=== PATIENT | female | born 1970 | race African-American/Black ===

== ENCOUNTER 2016-08-11 07:28 | Emergency (ER) | payer OTHER ==
[2016-08-11 07:39] VITALS: BP 152/90
--- NOTE | 2016-08-11 08:13 | PROVIDER DOCUMENTATION ---
HPI-Respiratory General - General Chief Complaint: Sore Throat Stated Complaint: FLU LIKE SX Time Seen by Provider: 08/11/16 07:42 Allergies/Adverse Reactions: Patient Allergies Allergy/AdvReac Type Severity Reaction Status Date / Time acyclovir Allergy Unknown NAUSEA; Verified 03/06/16 09:07 LEGS NUMB prednisone Allergy Unknown VOMITING Verified 03/06/16 09:07 ketorolac tromethamine * AdvReac Severe Unknown Verified 03/06/16 09:07 [From Toradol] Home Medications: Simvastatin [Zocor] 40 mg PO QHS 03/30/12 Polyethylene Glycol 3350 [Miralax] 1 dose PO DAILY 12/13/15 - History of Present Illness-Resp Nature of Presenting Problem: URI symptoms X 1 week. Sore throat, sinus congestion, cough. No F/C/SOB/[place]. Quality of Pain: reports: aching Severity in ED: reports: moderate Onset/Duration: reports: 1 week ago Timing: reports: still present Context: denies: recent foreign travel, insect bite (possible tick) Exposure: reports: unknown cause Cough Quality/Degree: reports: dry cough Episode Frequency: no prior episodes Current Respiratory Medication Therapy: Initiated none Modifying Factors: improves with: nothing Associated Symptoms: reports: cough, facial pain, flu-like symptoms, sore throat . denies: fever/chills, headache, nasal drainage, shortness of breath, short of breath Similar Symptoms Previously?: No Recently seen or treated by another doctor?: No Review of Systems - Adult - REVIEW OF SYSTEMS - ADULT Constitutional: reports: see HPI, fatique. denies: fever, weight gain Eyes: reports: no symptoms reported Ears, Nose, Mouth & Throat: reports: see HPI, sinus problem, throat pain Cardiovascular: reports: no symptoms reported Respiratory: reports: see HPI, cough. denies: shortness of breath Gastrointestinal: reports: no symptoms reported Genitourinary: reports: no symptoms reported Musculoskeletal: reports: no symptoms reported Integumentary: reports: no symptoms reported Neurological: reports: no symptoms reported Psychiatric: reports: no symptoms reported All Other Systems: Reviewed and Negative Past History - Adult - PAST MEDICAL HISTORY-ADULT Major Childhood Illnesses: reports: denies history Cardiovascular: reports: HTN, hyperlipidemia Gastrointestinal: reports: IBS Musculoskeletal: reports: other (avascular necrosis) Endocrine/Immune: reports: other (shingles) - PRIOR SURGERIES/PROCEDURES Surgical/Procedure History: reports: hysterectomy, orthopedic (extremity) - PRIOR HOSPITALIZATIONS Prior Hospitalizations: reports: none - IMMUNIZATION STATUS Childhood Immunizations: See Nurse Assessment Flu Vaccine: See Nurse Assessment - FAMILY HISTORY Family History: reviewed, not pertinent Physical Exam-General - PHYSICAL EXAM-ADULT Initial Vital Signs Reviewed: Yes - CONSTITUTIONAL General Appearance: appears well, alert, no apparent distress - EYES Eyes: PERRL/EOMI, pink conjunctivae - HEAD, EARS, NOSE, MOUTH & THROAT HENMT: normocephalic/atraumatic, moist mucous membranes, normal ENT inspection - NECK Neck: non-tender, full range of motion, normal inspection - RESPIRATORY Respiratory: chest non-tender, lungs clear, normal breath sounds - CARDIOVASCULAR Cardiovascular: normal peripheral pulses, regular rate, rhythm, no edema - GASTROINTESTINAL (ABDOMEN) Abdominal Exam: normal bowel sounds, non tender, soft - LYMPHATIC Lymphatic: no adenopathy - MUSCULOSKELETAL Back Exam: normal inspection, no CVA tenderness, no vertebral tenderness Extremity: normal range of motion, non-tender, normal gait - SKIN Integumentary: normal color, normal turgor, warm/dry - NEUROLOGIC Neurologic: grossly normal, no motor/sensory deficits - PSYCHIATRIC Psych/Mental Status: normal mood/affect, normal thought content, normal thought process, oriented x 3 Progress - PLAN OF CARE/RESULTS Progress/Plan/Lab Results: Laboratory Results - last 24 hr 08/11/16 08/11/16 07:33 07:33 Influenza A (Rapid) NEGATIVE Influenza B (Rapid) NEGATIVE Group A Strep Rapid NEGATIVE Vital Signs Temp Pulse Resp BP Pulse Ox 08/11/16 07:36 97.2 F L 84 18 152/90 99 acyclovir Allergy (Unknown, Verified 03/06/16 09:07) NAUSEA; LEGS NUMB prednisone Allergy (Unknown, Verified 03/06/16 09:07) VOMITING ketorolac tromethamine * [From Toradol] Adverse Reaction (Severe, Verified 03/06 09:07) Unknown "makes head pound" Simvastatin [Zocor] 40 mg PO QHS 03/30/12 Acetaminophen [Tylenol] 650 mg PO Q4H PRN PRN #0 tablet 04/04/15 Dicyclomine [Bentyl] 20 mg PO PRN PRN #0 capsule 04/04/15 Ondansetron Odt [Zofran 4 mg Odt] 4 mg PO Q6H PRN PRN #12 tablet 12/13/15 Polyethylene Glycol 3350 [Miralax] 1 dose PO DAILY 12/13/15 Butalbital/APAP/Caffeine [Fioricet] 1 each PO Q4H PRN PRN #20 tablet 03/06/16 Bisacodyl [Dulcolax] 10 mg CA QHS #20 supp 04/03/16 Magnesium Citrate [Citrate of Magnesia] 300 ml PO ONCE #1 bottle 04/03/16 Polyethylene Glycol 3350 [Miralax] 17 gm PO DAILY #20 powd.pack 04/03/16 Tramadol [Ultram] 50 mg PO Q8HR #14 tablet 04/03/16 Penciclovir Cream [Denavir Cream] 1 applicatn TOP Q2H PRN PRN #1 tube 06/04/16 Laboratory 08/11/16 08/11/16 07:33 07:33 Influenza A (Rapid) NEGATIVE Influenza B (Rapid) NEGATIVE Group A Strep Rapid NEGATIVE Orders Category Date Time Status DIRECT STREP PL Stat Lab 08/11/16 07:33 Completed Flu [INFLUENZA SCREEN PL] Stat Lab 08/11/16 07:33 Completed Departure - Departure Time of Disposition Order: 08:16 DIAGNOSIS: Bronchitis Sinusitis Qualifiers: Sinusitis location: unspecified location Chronicity: acute Recurrence: not specified as recurrent Qualified Code(s): J01.90 - Acute sinusitis, unspecified Disposition: HOME 01 Certified Medical Emergency: Emergent Condition: Stable Prescriptions: Methylprednisolone [Medrol Dosepak] 4 mg PO DIRECTED #1 package Benzonatate [Tessalon Perle] 200 mg PO TID #30 capsule Azithromycin [Zithromax Z-Michael] 250 mg PO DIRECTED #1 pkg Referrals: Benito Meadows MD [Primary Care Provider] -
== END 2016-08-11 08:29 | disposition home or self-care (01) ==
LOC: P.ED 07:28
DX: J40 Bronchitis, not specified as acute or chronic (principal); J01.90 Acute sinusitis, unspecified; J02.9 Acute pharyngitis, unspecified; R09.81 Nasal congestion; R05 Cough; R51 Headache; R53.83 Other fatigue; I10 Essential (primary) hypertension; E78.5 Hyperlipidemia, unspecified; Z79.899 Other long term (current) drug therapy
CPT/HCPCS: 87081; 87430; 87804; 99283

== ENCOUNTER 2016-10-03 09:39 | Emergency (ER) | payer OTHER ==
--- NOTE | 2016-10-03 12:33 | PROVIDER DOCUMENTATION ---
HPI-EENT General - General Source: patient - History of Present Illness-EENT General EENT Location: reports: throat Quality of Pain: reports: aching Severity: reports: mild Onset/Duration: reports: 4 days ago Timing: reports: still present, intermittent Prearrival Treatment: Initiated no prearrival treatment Associated Symptoms: reports: fever, sore throat Locality of [place]: Home Similar Symptoms Previously?: Yes Recently seen or treated by another doctor?: No - Eyes Eye Problem Symptoms: denies: eye pain - Ears Ear Problem Symptoms: reports: none - Throat/Dental Throat/Dental Problem Symptoms: reports: sore throat Recently seen a dentist or have an appointment?: No <Lola Izaguirre - Last Filed: 10/03/16 12:31> <Genaro Anaya - Last Filed: 10/03/16 12:41> - General Chief Complaint: Cold Symptoms Stated Complaint: COLD SX Time Seen by Provider: 10/03/16 10:40 Allergies/Adverse Reactions: Patient Allergies Allergy/AdvReac Type Severity Reaction Status Date / Time acyclovir Allergy Unknown NAUSEA; Verified 03/06/16 09:07 LEGS NUMB prednisone Allergy Unknown VOMITING Verified 03/06/16 09:07 ketorolac tromethamine * AdvReac Severe Unknown Verified 03/06/16 09:07 [From Toradol] Home Medications: Home Medication List Medication Instructions Recorded Confirmed Last Taken Type Simvastatin [Zocor] 40 mg PO QHS 03/30/12 12/13/15 12/13/15 History Amoxicillin [Amoxil] 500 mg PO BID #14 capsule 10/03/16 Unknown Rx Diphenhyramine/Al&mg Oh/Lido [Mbx 15 ml MT Q4-6H PRN PRN #1 bottle 10/03/16 Unknown Rx Solution] Guaifenesin/D-Methorphan Hb/PE 1 each PO Q6-8H PRN PRN #14 tablet 10/03/16 Unknown Rx [Deconex Dmx Tablet] Polyethylene Glycol 3350 [Miralax] 10/03/16 Unknown History - History of Present Illness-EENT General Nature of Presenting Problem: Pt is 46 y/o F presents to the ED with sore throat. Pt states F and chills. Pt denies N/V/D. (Lola Izaguirre) Review of Systems - Adult - REVIEW OF SYSTEMS - ADULT Constitutional: reports: chills, fever Eyes: reports: no symptoms reported Ears, Nose, Mouth & Throat: reports: throat pain. denies: ear pain, nose pain Cardiovascular: reports: no symptoms reported Respiratory: reports: no symptoms reported Gastrointestinal: reports: no symptoms reported Genitourinary: reports: no symptoms reported Musculoskeletal: reports: no symptoms reported Integumentary: reports: no symptoms reported Neurological: reports: no symptoms reported Psychiatric: reports: no symptoms reported Endocrine: reports: no symptoms reported Hematologic/Lymphatic: reports: no symptoms reported Allergic/Immunologic: reports: no symptoms reported All Other Systems: Reviewed and Negative <Lola Izaguirre - Last Filed: 10/03/16 12:31> Past History - Adult - PAST MEDICAL HISTORY-ADULT Review of Records: reports: Nursing Assessment Review, Medications Reviewed, Social history reviewed & non-contributory. Major Childhood Illnesses: reports: denies history Cardiovascular: reports: HTN, hyperlipidemia Respiratory: reports: denies history Gastrointestinal: reports: IBS Obstetrical/Gynecological: reports: denies history Genitourinary: reports: denies history Musculoskeletal: reports: other (avascular necrosis) Neurological: reports: denies history Endocrine/Immune: reports: other (shingles) Other Conditions: reports: denies history - PRIOR SURGERIES/PROCEDURES Surgical/Procedure History: reports: hysterectomy, orthopedic (extremity) - PRIOR HOSPITALIZATIONS Prior Hospitalizations: reports: none - IMMUNIZATION STATUS Childhood Immunizations: See Nurse Assessment Flu Vaccine: See Nurse Assessment - FAMILY HISTORY Family History: reviewed, not pertinent - SOCIAL HISTORY Smoking: denies Substance Use: denies Living Situation: family <Lola Izaguirre - Last Filed: 10/03/16 12:31> Physical Exam- EENT - Physical Exam EENT Initial Vital Signs Reviewed: Yes General Appearance: appears well, alert, no apparent distress Eye Exam: bilateral eye: normal inspection, PERRL, EOMI Ear Exam: bilateral ear: auricle normal, canal normal, TM normal Nasal Exam: normal inspection Throat Exam: tonsillar swelling, other (redness to tonsils) Neck: non-tender, full range of motion, supple, normal inspection Respiratory: chest non-tender, lungs clear, normal breath sounds, no pleuratic chest pain, no respiratory distress, no accessory muscle use Cardiovascular: normal peripheral pulses, regular rate, rhythm, no edema, no gallop, no JVD, no murmur Abdominal Exam: normal bowel sounds, non tender, soft, no organomegaly, no pulsatile mass Lymphatic: no adenopathy Back Exam: normal inspection, no CVA tenderness, no vertebral tenderness Extremity: normal range of motion, non-tender, normal gait, normal inspection, no pedal edema, no calf tenderness, normal capillary refill Integumentary: normal color, normal turgor, warm/dry Neurologic: grossly normal Psych/Mental Status: normal mood/affect, oriented x 3 <Lola Izaguirre - Last Filed: 10/03/16 12:31> Progress <Lola Izaguirre - Last Filed: 10/03/16 12:31> <Genaro Anaya - Last Filed: 10/03/16 12:41> - PLAN OF CARE/RESULTS Progress/Plan/Lab Results: Laboratory Tests 10/03/16 10/03/16 11:41 11:42 Influenza A (Rapid) NEGATIVE Influenza B (Rapid) NEGATIVE Group A Strep Rapid NEGATIVE Orders Category Date Time Status DIRECT STREP PL Stat Lab 10/03/16 11:[address] Stat Lab 10/03/16 11:42 Completed Vital Signs - 24 hr 10/03/16 09:55 Temperature 98 F Pulse Rate 86 Respiratory 18 Rate Blood Pressure 141/82 O2 Sat by Pulse 100 Oximetry (Lola Izaguirre) Departure <Lola Izaguirre - Last Filed: 10/03/16 12:31> - Departure Time of Disposition Order: 12:40 Certified Medical Emergency: Urgent <Genaro Anaya - Last Filed: 10/03/16 12:41> - Departure DIAGNOSIS: Tonsillitis with exudate Disposition: HOME 01 Condition: Good Additional Instructions: Take medication as prescribed. Follow up with your primary care provider. Rest and stay well hydrated. ED Follow Up Instructions: You have been treated by a care provider in the Emergency Department. These instructions are being provided to you so you can have an understanding of how to care for yourself upon discharge. Upon discharge from the Emergency Department, you are responsible for making arrangements for follow-up care by a physician of your choice. Take all prescribed medications as directed. Return to the Emergency Department immediately for any new or worsening symptoms. You may call the Physician Referral phone number at [phone] to obtain a list of Physicians who are taking new patients. Prescriptions: Amoxicillin [Amoxil] 500 mg PO BID #14 capsule Guaifenesin/D-Methorphan Hb/PE [Deconex Dmx Tablet] 1 each PO Q6-8H PRN PRN #14 tablet PRN Reason: Cough and congestion Diphenhyramine/Al&mg Oh/Lido [Mbx Solution] 15 ml MT Q4-6H PRN PRN #1 bottle PRN Reason: Sore throat Referrals: None,PCP [Primary Care Provider] - Attestation - Scribe Verification/Attestation Scribe:: Lola Izaguirre Acting as Scribe for:: Genaro Anaya Scribe documention review:: This chart was documented by a scribe and accurately reflects the service the provider performed and the decisions made by the provider. <Lola Izaguirre - Last Filed: 10/03/16 12:31> - Physician/ LINO Attestation Patient care was provided by Advanced Practice Provider:: Yes Advanced Practice Provider:: Genaro Anaya Advanced Practice Provider documentation review:: The Mid-level provider documentation, treatment plan and medical decision making was reviewed by the physician who agrees with all treatment and medical decision making by the MLP. <Genaro Anaya - Last Filed: 10/03/16 12:41> Physician Attestation
[2016-10-03 12:48] VITALS: BP 121/78
== END 2016-10-03 12:50 | disposition home or self-care (01) ==
LOC: P.ED 09:39
DX: J03.90 Acute tonsillitis, unspecified (principal); J02.9 Acute pharyngitis, unspecified; R50.9 Fever, unspecified; R22.1 Localized swelling, mass and lump, neck; I10 Essential (primary) hypertension; E78.5 Hyperlipidemia, unspecified; Z79.899 Other long term (current) drug therapy
CPT/HCPCS: 87081; 87430; 87804; 99283